=== PATIENT | male | born 1930 | race Caucasian/White ===

== ENCOUNTER 2017-08-07 13:18 | Inpatient (IN) ==
--- NOTE | 2017-08-07 17:12 | Event Note ---
Date of Encounter: 08/07/17 Time of Encounter: 17:08 Patient seen and examined with nurse practitioner. Patient has community acquired pneumonia, new onset rate controlled afib, positive influenza A, in addition to non-STEMI (type 1 vs. 2). Start patient on antibiotics, Tamiflu, aspirin, low-dose heparin drip for stroke prophylaxis for afib. Check echocardiogram. Cardiology consult. Patient is full code
[2017-08-07] MEDS ORDERED: Ondansetron 4 MG/2 ML VIAL IVP PRN (17:51)
[2017-08-07] MEDS ORDERED: Naloxone 0.4 MG/ML INJ IVP PRN (17:51)
[2017-08-07] MEDS ORDERED: Albuterol 2.5 MG/3 ML NEBULIZER IH PRN (17:53)
[2017-08-07] MEDS ORDERED: *HR* Heparin 5,000 UNIT/ML VIAL IVP PRN (17:54)
[2017-08-07] MEDS ORDERED: Furosemide 20 MG/2 ML VIAL IVP SCH (18:15)
--- NOTE | 2017-08-07 18:30 | Internal Med History&Physical ---
Date of Encounter: 08/07/17 Time of Encounter: 18:23 Assessment and Plan (1) New onset a-fib Current visit: No Status: Acute Patient presented A. fib controlled rate of 70 history of atrial fibrillation denies any chest pain initiated on heparin drip Continuous cardiac monitoring Obtain cardiac echo Consult cardiology -spoke Dr. Ward who will see patient (2) Influenza Current visit: No Status: Acute Influenza swab positive-influenza A- symptoms initiated 2 days ago we will start her on Tamiflu (3) Pneumonia Current visit: No Status: Acute Patient has been experiencing cough fever shortness of breath chest x-ray did show bilateral opacities more prominent on the right Blood cultures were obtained and obtain sputum culture Initiated on Levaquin for community acquired pneumonia Bronchodilators Qualifiers: Pneumonia type: due to unspecified organism Laterality: right Lung location: lower lobe of lung Qualified Code(s): J18.1 - Lobar pneumonia, unspecified organism (4) NSTEMI (non-ST elevated myocardial infarction) Current visit: Yes Status: Acute Patient has elevated troponin on presentation 0.30-1 versus 2-patient has cardiac history with stent and LAD 10 years ago as well as presently in new A. fib. We will continue to trend troponins-he is already on heparin drip which we will continue Continuous cardiac monitoring Cardiology consulted Nitroglycerin as needed Continue with aspirin and statin (5) DVT prophylaxis Current visit: Yes Status: Acute Patient is on heparin drip Internal Medicine - H&P: HPI Chief complaint: Cough,SOB Admitted From: Hospital to Hospital Transfer Plans for Post Hospital Care: Home History of present illness: Mr. Bermudez is a 86 year old male past medical history of CAD with stent and LAD CKD GERD hyperlipidemia hypertension hypothyroid. For the past 2 days patient has been experiencing cough with yellow sputum production congestion subjective fevers/chills and shortness of breath. He has had sick contacts with similar complaints he denies any chest pain nausea vomiting diarrhea or abdominal pain. He presented to [facility] , lab work there did show elevated creatinine troponin was elevated as well as BNP and chest x-ray did show by basilar opacity of these more prominent on the right. Influenza swab was positive for influenza A EKG did demonstrate atrial fibrillation with a controlled rate in the 70s patient denies any past history of atrial fibrillation. He was initiated on heparin drip Blood cultures were obtained he was given Levaquin and Tamiflu he has been transferred to [facility] for further workup and evaluation. Presently the patient denies any chest pain or shortness of breath he is hemodynamically stable at this time continues to be atrial fibrillation with a controlled rate 70s. I did review this case with Dr. Law who agrees with plan. Past Med Surg Social Fam HX - Past Medical History Medical history: coronary artery disease, GERD, hyperlipidemia, hypertension, thyroid disease Psychiatric history: no psych history - Past Surgical History Surgical History: angioplasty/stent - Social History Smoking Status: Former smoker Alcohol use: none Drug use: none - Family History Sister Hx Family Cancer: Yes Father Living Status: Cause of : CVA Hx Family Neurologic Disorders: Yes (CVA) Brother Living Status: Hx Family Cancer: Yes Internal Medicine - H&P: Meds Aspirin [Ecotrin] 325 mg PO DAILY 08/07/17 [History] Atorvastatin [Lipitor] 20 mg PO HS 08/07/17 [History] Calcitriol [Rocaltrol] 0.25 mcg PO DAILY 08/07/17 [History] Ergocalciferol (VITAMIN D2) [Vitamin D2] 50,000 unit PO QWEEK 08/07/17 [History] Fexofenadine/Pseudoephedrine [Ericka-D 24 Hour Tablet] 1 each PO DAILY [History] Finasteride [Proscar] 5 mg PO DAILY 08/07/17 [History] Furosemide [Lasix] 40 mg PO DAILY PRN 08/07/17 [History] Iron Ps Cmplx/Vit B12/FA [Iferex 150 Forte Capsule] 1 cap PO DAILY 08/07/17 [ History] Levothyroxine Sodium [Synthroid] 137 mcg PO DAILY 08/07/17 [History] Lipase/Protease/Amylase [Creon Dr 12,000 Units Capsule] 1 cap PO TIDWM 08/07/17 [History] Lisinopril [Zestril] 40 mg PO DAILY 08/07/17 [History] NIFEdipine [Nifedipine ER] 30 mg PO DAILY 08/07/17 [History] Omeprazole [PriLOSEC] 40 mg PO DAILY 08/07/17 [History] 3 Allergy/AdvReac Type Severity Reaction Status Date / Time No Known Allergies Allergy Verified 08/07/17 11:14 All Systems PM: A 10-system review of systems was performed and is negative for pertinent findings except as documented above in the HPI. - Constitutional Constitutional: no chills, no fever(s), no night sweats - EENT Eyes: no change in vision, no discharge, no pain, no photophobia Nose, mouth and throat: no dysphagia, no nasal discharge, no neck pain, no sore throat - Cardiovascular Cardiovascular ROS IM: no chest pain, no diaphoresis, no dyspnea, no lightheadedness, no palpitations, no syncope - Respiratory Respiratory: cough, chest congestion, change in phlegm color - Gastrointestinal Gastrointestinal: no abdominal pain, no diarrhea, no hematemesis, no hematochezia, no melena, no nausea, no vomiting - Musculoskeletal Musculoskeletal ROS IM: no numbness, no tingling - Integumentary Integumentary IM: no rash, no unusual bruising - Neurological Neurological ROS: no confusion, no convulsions, no focal weakness, no numbness, no tingling, no tremor(s) - Hematologic/Lymphatic Hematologic/Lymphatic: no easy bruising - Constitutional Vitals: Temp Pulse Resp BP Pulse Ox 99.3 F 76 17 147/79 92 08/07/17 15:41 08/07/17 15:41 08/07/17 15:41 08/07/17 15:41 08/07/17 15:41 General appearance: Present: A&O X 3, answers questions appropriately - Head Head exam: Present: atraumatic, normocephalic - Eye Eye exam: Present: PERRL, conjuntiva pink, sclera anicteric Pupils: Present: PERRL - Neck Neck exam general surgery: Present: supple, trachea midline. Absent: lymphadenopathy - Respiratory Respiratory exam: Present: rales. Absent: accessory muscle use, rhonchi, wheezes - Cardiovascular Cardiovascular exam: Present: irregular rhythm, +S1, +S2. Absent: diastolic murmur, gallop, rubs, systolic murmur - GI/Abdominal GI/Abdominal exam: Present: normal bowel sounds, soft, no peritoneal signs. Absent: distended, tenderness - Extremities Exam Extremities exam: Present: pedal edema, warm, radial pulses palpable and symmetrical. Absent: calf tenderness, cyanotic - Neurological Exam Neurological exam: Present: CN II-XII intact, oriented X3, no focal deficits. Absent: pronater drift, facial droop, speech deficit - Skin Skin exam: Present: dry, intact Internal Med - H&P Results - Labs Labs: Chemistry sodium 139 potassium 4.2 chloride 108 bicarbonate 22 and 32 creatinine 1.85 glucose 119 lactate 1.3 troponin 0.30 BMP 859 CBC WBC 10 hemoglobin 10.6 hematocrit 32.5 platelets 169 - EKG Data EKG comments: 08/07/17 18:33 Atrial fibrillation rate of 77 - Diagnostic Studies Other Images Additional comments: CXR Bilateral airspace opacities, most prominent at the right lung base, concerning for pneumonia.
[2017-08-07] MEDS: Furosemide 20 MG/2 ML VIAL IVP SCH (19:53)
[2017-08-07] MEDS: Acetaminophen 325 MG TABLET PO PRN (19:53)
[2017-08-07] MEDS: Heparin 25,000 UNIT/500 ML D5W 25,000 UNIT/500 ML BAG IVC SCH (21:30)
[2017-08-07] MEDS: *HR* Heparin 5,000 UNIT/ML VIAL IVP PRN (21:36)
[2017-08-07] MEDS: Oseltamivir Phosphate 30 MG CAPSULE PO SCH (23:41)
[2017-08-07] MEDS: Ipratropium/Albuterol Neb 3 ML IH SCH (23:51)
[2017-08-08] MEDS: Ipratropium/Albuterol Neb 3 ML IH SCH ×4 (04:31→22:04)
[2017-08-08 04:55] LABS: Basophils % 0.3 %; Hematocrit 27.7 % (37.5-50.1); Hemoglobin 8.9 g/dL (12.9-16.9); Immature Granulocytes % 0.9 % (0-4); Lymphocytes # 0.5 K/mcL (0.6-4.6); Lymphocytes % 5.8 %; Mean Corpuscular HGB Conc 32.1 g/dL (31.6-35.5); Mean Corpuscular Hemoglobin 31.9 pg (28.0-33.3); Mean Corpuscular Volume 99.3 fL (83.0-100.0); Mean Platelet Volume 11.4 fL (9.4-12.4); Monocytes # 0.5 K/mcL (0.0-1.3); Monocytes % 5.3 %; Neutrophils # 7.8 K/mcL (1.6-8.9); Platelet Count 146 K/mcL (140-400); Red Blood Count 2.79 M/mcL (4.19-5.50); Red Cell Distribution Width 14.1 % (11.5-14.5); Segmented Neutrophils % 87.7 %
[2017-08-08 05:19] LABS: Chol/HDL Ratio 2.6 (0-4.9); Magnesium 2.1 mg/dL (1.6-2.6); Potassium 3.8 mEq/L (3.5-5.1)
[2017-08-08] MEDS: Oseltamivir Phosphate 30 MG CAPSULE PO SCH ×2 (08:19→20:38)
[2017-08-08] MEDS: Furosemide 20 MG/2 ML VIAL IVP SCH (08:19)
[2017-08-08] MEDS: Finasteride 5 MG TABLET PO SCH (08:19)
[2017-08-08] MEDS: Aspirin Enteric Coated 325 MG Tablet PO SCH (08:19)
[2017-08-08] MEDS: NIFEdipine XL (24 HR) 30 MG TAB.ER.24 PO SCH (08:19)
--- NOTE | 2017-08-08 10:51 | Cardiology Consult Note ---
Date of Encounter: 08/08/17 Time of Encounter: 09:00 Assessment and Plan (1) Elevated troponin Current Visit: Yes Status: Acute Troponin elevated at 0.30, 0.13, 0.17 in the setting of BRITTNEY, anemia, and pneumonia. He denies chest pain. H/o CAD s/p previous PCI. EKG shows rate controlled afib. Check TTE. Continue heparin gtt for elevated troponin and afib. Asa, statin, and bb. (2) Atrial fibrillation Current Visit: Yes Status: Acute Noted to have rate controlled afib. Denies previous history. He is asymptomatic. Unknown onset. Continue beta-da. Check TTE and TSH. Continue heparin gtt. CHADS VASC=3 for HTN, age, and CAD. AC with coumadin vs NOAC discussed. He is a little unsteady on his feet since being ill with the flu. May need physical therapy. I will estrada check xarelto 15 mg daily. Creatinine clearance is 44.39. Qualifiers: Atrial fibrillation type: unspecified Qualified Code(s): I48.91 - Unspecified atrial fibrillation (3) CAD (coronary artery disease) Current Visit: Yes Status: Acute H/o remote PCI. No records here. Continue asa, statin, and bb. Qualifiers: Coronary Disease-Associated Artery/Lesion type: [place] artery [place] vs. transplanted heart: [place] heart Associated angina: without angina Qualified Code(s): I25.10 - Atherosclerotic heart disease of [place] coronary artery without angina pectoris Discussion w patient/family: The assessment and plan as outlined above was discussed with the patient and/or family members who expressed understanding and agreement. All questions were answered. Thank you for involving us in the care of your patient. Please call with any questions. History of Present Illness Consult date: 08/08/17 Requesting physician: Jeana Trevino Consult reason: afib Chief complaint: SOB and cough History of present illness: Mr. Bermudez is a 86 year old male with a past medical history of HTN CAD with revious cardiac stent who presents from home with two weeks of SOB, cough, and generalized weakness. He is found to have pneumonia. He was also noted to have rate controlled afib and troponin elevation. Cardiology consulted due to patient having no previous history of afib. He denies palpitations or chest pain. Past Med Surg Social Fam HX - Past Medical History Medical history: coronary artery disease, GERD, hyperlipidemia, hypertension, thyroid disease Psychiatric history: no psych history - Past Surgical History Surgical History: angioplasty/stent - Social History Smoking Status: Former smoker Alcohol use: none Drug use: none - Family History Sister Hx Family Cancer: Yes Father Living Status: Cause of : CVA Hx Family Neurologic Disorders: Yes (CVA) Brother Living Status: Hx Family Cancer: Yes Medications and Allergies Aspirin [Ecotrin] 325 mg PO DAILY 08/07/17 [History] Atorvastatin [Lipitor] 20 mg PO HS 08/07/17 [History] Calcitriol [Rocaltrol] 0.25 mcg PO DAILY 08/07/17 [History] Ergocalciferol (VITAMIN D2) [Vitamin D2] 50,000 unit PO QWEEK 08/07/17 [History] Fexofenadine/Pseudoephedrine [Ericka-D 24 Hour Tablet] 1 each PO DAILY [History] Finasteride [Proscar] 5 mg PO DAILY 08/07/17 [History] Furosemide [Lasix] 40 mg PO DAILY PRN 08/07/17 [History] Iron Ps Cmplx/Vit B12/FA [Iferex 150 Forte Capsule] 1 cap PO DAILY 08/07/17 [ History] Levothyroxine Sodium [Synthroid] 137 mcg PO DAILY 08/07/17 [History] Lipase/Protease/Amylase [Creon Dr 12,000 Units Capsule] 1 cap PO TIDWM 08/07/17 [History] Lisinopril [Zestril] 40 mg PO DAILY 08/07/17 [History] NIFEdipine [Nifedipine ER] 30 mg PO DAILY 08/07/17 [History] Omeprazole [PriLOSEC] 40 mg PO DAILY 08/07/17 [History] 3 Allergy/AdvReac Type Severity Reaction Status Date / Time No Known Allergies Allergy Verified 08/07/17 11:14 All Systems Review: A 10-system review of systems was performed and is negative for pertinent findings except as documented above in the HPI. Physical Examination Vital Signs, Last 4 Hours Temp Pulse Resp BP Pulse Ox 08/08/17 07:14 98.5 F 75 18 130/67 95 General: Conversant, No Apparent Distress HEENT: Atraumatic, Normocephaly, Mucus Membranes Moist Neck: No JVD, Normal carotid pulses Cardiac: Other (irregular) Lungs: Other (respirations easy, rhonci throughout) Neuro: Alert and responsive, No focal deficits noted Abdomen: Soft, Non-Tender Skin: No rashes noted on visualized skin Musculoskeletal: No Chest Wall Tenderness Extremities: No Clubbing, No Cyanosis, No Edema, Normal Pulses Results 08/08/17 04:17 08/08/17 04:17 Lab Results 08/07/17 08/07/17 08/08/17 18:15 20:39 04:17 WBC 8.9 Hgb 8.9 L D Hct 27.7 L Plt Count 146 APTT 43.2 H D Sodium Potassium Chloride Carbon Dioxide BUN Creatinine Glucose Calcium Magnesium Troponin I 0.13 H* 08/08/17 08/08/17 08/08/17 04:17 04:17 04:17 WBC Hgb Hct Plt Count APTT 81.9 H D Sodium 137 Potassium 3.8 Chloride 109 H Carbon Dioxide 22 L BUN 30 H Creatinine 1.58 H Glucose 166 H Calcium 8.0 L Magnesium 2.1 Troponin I 0.17 H* - Imaging and Cardiology Chest Xray: report reviewed Echo: pending - EKG Interpretation EKG results cardiology: personally reviewed Consult Discharge Plan - Plan Referrals: Inés Viveros MD [Primary Care Provider] -
--- NOTE | 2017-08-08 10:58 | Internal Med Progress Note ---
Date of Encounter: 08/08/17 Time of Encounter: 09:40 - Subjective Interval history: No acute events. The patient was admitted with the flu, pneumonia and new onset A. fib. He has been afebrile. His currently in sinus rhythm. He was started on heparin drip. He feels better this morning. Denies chest pain. - Constitutional Vitals: Temp Pulse Resp BP Pulse Ox 98.5 F 75 18 130/67 95 08/08/17 07:14 08/08/17 07:14 08/08/17 07:14 08/08/17 07:14 08/08/17 07:14 General appearance: Present: A&O X 3, answers questions appropriately Exam: GEN: NAD CVS: RRR. S1, S2, No m/r/g RESP: CTAB ABD: Soft, NT, ND, +BS EXT: No edema. 2+ DP, No rashes NEURO: Nonfocal Internal Medicine: Result - Labs CBC & Chem 7: 08/08/17 04:17 08/08/17 04:17 Labs: Short CBC 08/08/17 Range/Units 04:17 WBC 8.9 (4.3-11.1) K/mcL Hgb 8.9 L D (12.9-16.9) g/dL Hct 27.7 L (37.5-50.1) % Plt Count 146 (140-400) K/mcL Neutrophils # 7.8 (1.6-8.9) K/mcL BMP 08/08/17 04:17 Sodium 137 Potassium 3.8 Chloride 109 H Carbon Dioxide 22 L BUN 30 H Creatinine 1.58 H Glucose 166 H Calcium 8.0 L Cardiac Enzymes 08/07/17 08/08/17 Range/Units 18:15 04:17 Troponin I 0.13 H* 0.17 H* (< 0.04) ng/mL Consult Discharge Plan - Plan Referrals: Inés Viveros MD [Primary Care Provider] -
[2017-08-08] MEDS: Acetaminophen 325 MG TABLET PO PRN (11:08)
--- NOTE | 2017-08-08 11:16 | Internal Med Progress Note ---
Date of Encounter: 08/08/17 Time of Encounter: 09:00 - Assessment and plan (1) Influenza Current Visit: Yes Status: Acute Assessment and plan: The patient is positive for influenza A. Tamiflu has been started. This is day 2. (2) Pneumonia Current Visit: Yes Status: Acute Assessment and plan: Chest x-ray showed bilateral opacities more prominent on the right. Follow up on cultures. Continue Levaquin. Continue with O2 support. Continue with nebulizer treatment. Qualifiers: Aspiration pneumonia type: unspecified Laterality: unspecified laterality Lung location: unspecified part of lung Qualified Code(s): J69.0 - Pneumonitis due to inhalation of food and vomit (3) BRITTNEY (acute kidney injury) Current Visit: Yes Status: Acute Assessment and plan: The patient does have a history of chronic kidney disease. Unsure what his baseline is. His creatinine did improve compared to admission. No IV fluids. Check labs in the morning. Avoid nephrotoxins. (4) Elevated troponin Current Visit: Yes Status: Acute Assessment and plan: Cardiology has been consulted. Possibly an STEMI type I versus 2. He does have a new onset A. fib and brittney. We will await cardiology. Continue with heparin drip. The patient is on a beta da as well. He is on aspirin 325 mg daily. (5) NSTEMI (non-ST elevated myocardial infarction) Current Visit: Yes Status: Acute Assessment and plan: Hypertension has been started. Beta da as well as aspirin 325 mg has been added. Echo pending (6) Atrial fibrillation Current Visit: Yes Status: Acute Assessment and plan: This is new-onset. Cardiology has been consulted. Echo pending. Continue with rate control with metoprolol 25 mg twice a day. Has elevated chads vasc score and likely will need anticoagulation. Qualifiers: Atrial fibrillation type: unspecified Qualified Code(s): I48.91 - Unspecified atrial fibrillation (7) CAD (coronary artery disease) Current Visit: Yes Status: Acute Assessment and plan: Continue aspirin and beta da. Continue statin. Qualifiers: Coronary Disease-Associated Artery/Lesion type: [place] artery [place] vs. transplanted heart: [place] heart Associated angina: without angina Qualified Code(s): I25.10 - Atherosclerotic heart disease of [place] coronary artery without angina pectoris (8) DVT prophylaxis Current Visit: Yes Status: Acute Assessment and plan: Heparin drip - Subjective Interval history: No acute events. The patient was admitted with the flu, pneumonia and new onset A. fib. He has been afebrile. His currently in sinus rhythm. He was started on heparin drip. He feels better this morning. Denies chest pain. - Constitutional Vitals: Temp Pulse Resp BP Pulse Ox 100.1 F H 86 16 109/62 92 08/08/17 11:05 08/08/17 11:05 08/08/17 11:05 08/08/17 11:05 08/08/17 11:05 General appearance: Present: A&O X 3, answers questions appropriately Internal Medicine: Result - Labs CBC & Chem 7: 08/08/17 04:17 08/08/17 04:17 Labs: Short CBC 08/08/17 Range/Units 04:17 WBC 8.9 (4.3-11.1) K/mcL Hgb 8.9 L D (12.9-16.9) g/dL Hct 27.7 L (37.5-50.1) % Plt Count 146 (140-400) K/mcL Neutrophils # 7.8 (1.6-8.9) K/mcL BMP 08/08/17 04:17 Sodium 137 Potassium 3.8 Chloride 109 H Carbon Dioxide 22 L BUN 30 H Creatinine 1.58 H Glucose 166 H Calcium 8.0 L Cardiac Enzymes 08/07/17 08/08/17 Range/Units 18:15 04:17 Troponin I 0.13 H* 0.17 H* (< 0.04) ng/mL Consult Discharge Plan - Plan Referrals: Inés Viveros MD [Primary Care Provider] - Prescriptions: Rivaroxaban [Xarelto] 15 mg PO 1700 #30 tablet
[2017-08-08] MEDS: *HR* Heparin 5,000 UNIT/ML VIAL IVP PRN (11:54)
[2017-08-08 11:59] LABS: Magnesium 1.9 mg/dL (1.6-2.6)
[2017-08-08 12:14] LABS: Thyroid Stimulating Hormone 0.548 mcIU/mL (0.340-5.600)
[2017-08-08] MEDS: Heparin 25,000 UNIT/500 ML D5W 25,000 UNIT/500 ML BAG IVC SCH (15:16)
[2017-08-09 00:43] LABS: Basophils % 0.3 %; Eosinophils # 0.3 K/mcL (0.0-0.6); Hematocrit 26.7 % (37.5-50.1); Hemoglobin 8.9 g/dL (12.9-16.9); Immature Granulocytes % 0.9 % (0-4); Lymphocytes # 1.1 K/mcL (0.6-4.6); Lymphocytes % 12.2 %; Mean Corpuscular HGB Conc 33.3 g/dL (31.6-35.5); Mean Corpuscular Hemoglobin 32.6 pg (28.0-33.3); Mean Corpuscular Volume 97.8 fL (83.0-100.0); Mean Platelet Volume 10.7 fL (9.4-12.4); Monocytes # 0.8 K/mcL (0.0-1.3); Monocytes % 8.6 %; Neutrophils # 6.6 K/mcL (1.6-8.9); Platelet Count 156 K/mcL (140-400); Red Blood Count 2.73 M/mcL (4.19-5.50); Red Cell Distribution Width 14.2 % (11.5-14.5)
[2017-08-09 00:58] LABS: Calcium 8.3 mg/dL (8.6-10.3); Potassium 3.5 mEq/L (3.5-5.1)
[2017-08-09] MEDS: Ipratropium/Albuterol Neb 3 ML IH SCH ×4 (04:03→23:45)
[2017-08-09] MEDS: *HR* Heparin 5,000 UNIT/ML VIAL IVP PRN (07:15)
[2017-08-09] MEDS ORDERED: Levofloxacin 750 MG/150 ML 750 MG/150 ML BAG IVPB SCH (09:00)
[2017-08-09] MEDS: Finasteride 5 MG TABLET PO SCH (11:08)
[2017-08-09] MEDS: *HR* Rivaroxaban 15 MG TABLET PO SCH ×2 (11:08→18:08)
[2017-08-09] MEDS: NIFEdipine XL (24 HR) 30 MG TAB.ER.24 PO SCH (11:08)
[2017-08-09] MEDS: Oseltamivir Phosphate 30 MG CAPSULE PO SCH ×2 (11:09→21:12)
[2017-08-09] MEDS: Aspirin Enteric Coated 325 MG Tablet PO SCH (11:09)
--- NOTE | 2017-08-09 13:02 | Internal Med Progress Note ---
Date of Encounter: 08/09/17 Time of Encounter: 11:00 - Assessment and plan (1) Influenza Current Visit: Yes Status: Acute Assessment and plan: The patient is positive for influenza A. Tamiflu has been started. This is day 3. (2) Pneumonia Current Visit: Yes Status: Acute Assessment and plan: Chest x-ray showed bilateral opacities more prominent on the right. Sputum cultures negative. Continue Levaquin. Continue with O2 support. Continue with nebulizer treatment. Wean down oxygen as tolerated. Qualifiers: Aspiration pneumonia type: unspecified Laterality: unspecified laterality Lung location: unspecified part of lung Qualified Code(s): J69.0 - Pneumonitis due to inhalation of food and vomit (3) BRITTNEY (acute kidney injury) Current Visit: Yes Status: Acute Assessment and plan: The patient does have a history of chronic kidney disease. Unsure what his baseline is. No IV fluids. Check labs in the morning. Avoid nephrotoxins. (4) Elevated troponin Current Visit: Yes Status: Acute Assessment and plan: Cardiology has been consulted. Possibly NSTEMI type I versus 2. He did have a new onset A. fib and brittney. Cardiology saw the patient and echo ordered showed no wall motion and mobility. Stop heparin drip. Place on xarelto renally dosed. Stop adult aspirin and start baby aspirin. The patient is on a beta da as well. (5) NSTEMI (non-ST elevated myocardial infarction) Current Visit: Yes Status: Acute Assessment and plan: Stop heparin drip. Echo noted normal wall motion. Continue beta da. Start aspirin 81 mg and stopped 325 mg aspirin. Continue statin (6) Atrial fibrillation Current Visit: Yes Status: Acute Assessment and plan: This is new-onset. Cardiology has been consulted. Stop heparin drip switched to xarelto renally dosed. Echo results noted. Continue with rate control with metoprolol 25 mg twice a day. Qualifiers: Atrial fibrillation type: unspecified Qualified Code(s): I48.91 - Unspecified atrial fibrillation (7) CAD (coronary artery disease) Current Visit: Yes Status: Acute Assessment and plan: Continue aspirin and beta da. Continue statin. Qualifiers: Coronary Disease-Associated Artery/Lesion type: [place] artery [place] vs. transplanted heart: [place] heart Associated angina: without angina Qualified Code(s): I25.10 - Atherosclerotic heart disease of [place] coronary artery without angina pectoris (8) DVT prophylaxis Current Visit: Yes Status: Acute Assessment and plan: xarelto - Subjective Interval history: No acute events. The patient was admitted with the flu, pneumonia and new onset A. fib. Continues to be afebrile. Remains in sinus rhythm. He has been afebrile. His currently in sinus rhythm. He was started on heparin drip and remains to do so. He continues to feel well. He remains on 3 L of nasal cannula oxygen. - Constitutional Vitals: Temp Pulse Resp BP Pulse Ox 98.8 F 75 16 108/63 94 08/09/17 11:29 08/09/17 11:29 08/09/17 11:29 08/09/17 11:29 08/09/17 11:29 General appearance: Present: A&O X 3, answers questions appropriately Exam: GEN: NAD CVS: RRR. S1, S2, No m/r/g RESP: CTAB ABD: Soft, NT, ND, +BS EXT: No edema. 2+ DP, No rashes NEURO: Nonfocal Internal Medicine: Result - Labs CBC & Chem 7: 08/09/17 00:34 08/09/17 00:34 Labs: Short CBC 08/09/17 Range/Units 00:34 WBC 8.8 (4.3-11.1) K/mcL Hgb 8.9 L (12.9-16.9) g/dL Hct 26.7 L (37.5-50.1) % Plt Count 156 (140-400) K/mcL Neutrophils # 6.6 (1.6-8.9) K/mcL BMP 08/09/17 00:34 Sodium 136 Potassium 3.5 Chloride 107 Carbon Dioxide 23 BUN 32 H Creatinine 1.81 H Glucose 132 H Calcium 8.3 L Consult Discharge Plan - Plan Referrals: Inés Viveros MD [Primary Care Provider] - Prescriptions: Rivaroxaban [Xarelto] 15 mg PO 1700 #30 tablet
[2017-08-10] MEDS: Ipratropium/Albuterol Neb 3 ML IH SCH ×2 (03:48→11:51)
[2017-08-10 04:47] LABS: Eosinophils # 0.3 K/mcL (0.0-0.6); Hematocrit 27.3 % (37.5-50.1); Hemoglobin 8.7 g/dL (12.9-16.9); Mean Corpuscular HGB Conc 31.9 g/dL (31.6-35.5); Mean Corpuscular Hemoglobin 31.8 pg (28.0-33.3); Mean Corpuscular Volume 99.6 fL (83.0-100.0); Platelet Count 187 K/mcL (140-400); Red Blood Count 2.74 M/mcL (4.19-5.50); Red Cell Distribution Width 14.3 % (11.5-14.5)
[2017-08-10 05:04] LABS: Calcium 8.1 mg/dL (8.6-10.3); Potassium 3.5 mEq/L (3.5-5.1)
[2017-08-10 05:36] LABS: Lymphocytes # 2.3 K/mcL (0.6-4.6); Monocytes # 0.7 K/mcL (0.0-1.3); Platelet Estimate Normal (Normal)
[2017-08-10] MEDS: NIFEdipine XL (24 HR) 30 MG TAB.ER.24 PO SCH (08:56)
[2017-08-10] MEDS: Finasteride 5 MG TABLET PO SCH (08:56)
[2017-08-10] MEDS: Oseltamivir Phosphate 30 MG CAPSULE PO SCH (08:56)
[2017-08-10] MEDS ORDERED: Aspirin Enteric Coated 81 MG Tablet PO SCH (09:00)
--- NOTE | 2017-08-10 09:42 | Discharge Summary ---
Date of Encounter: 08/10/17 Time of Encounter: 09:37 - Discharge Diagnosis (1) Influenza Priority: Primary Status: Acute (2) Pneumonia Priority: Primary Status: Acute Qualifiers: Aspiration pneumonia type: unspecified Laterality: unspecified laterality Lung location: unspecified part of lung Qualified Code(s): J69.0 - Pneumonitis due to inhalation of food and vomit (3) BRITTNEY (acute kidney injury) Priority: Primary Status: Acute (4) Elevated troponin Priority: Primary Status: Acute (5) NSTEMI (non-ST elevated myocardial infarction) Priority: Primary Status: Acute (6) Atrial fibrillation Priority: Primary Status: Acute Qualifiers: Atrial fibrillation type: unspecified Qualified Code(s): I48.91 - Unspecified atrial fibrillation (7) CAD (coronary artery disease) Priority: Secondary Status: Acute Qualifiers: Coronary Disease-Associated Artery/Lesion type: pokagon artery [place] vs. transplanted heart: pokagon heart Associated angina: without angina Qualified Code(s): I25.10 - Atherosclerotic heart disease of pokagon coronary artery without angina pectoris (8) CKD (chronic kidney disease) stage 3, GFR 30-59 ml/min Priority: Secondary Status: Acute - Discharge Medications Prescriptions: Aspirin Enteric Coated [Aspirin EC] 81 mg PO DAILY #30 tablet. Levofloxacin [Levaquin] 500 mg PO DAILY #5 tablet Oseltamivir Phosphate [Tamiflu] 30 mg PO BID #2 capsule Rivaroxaban [Xarelto] 15 mg PO 1700 #30 tablet Rivaroxaban [Xarelto] 15 mg PO 1700 #30 tablet Home Medications: Atorvastatin [Lipitor] 20 mg PO HS 08/07/17 [History] Calcitriol [Rocaltrol] 0.25 mcg PO DAILY 08/07/17 [History] Ergocalciferol (VITAMIN D2) [Vitamin D2] 50,000 unit PO QWEEK 08/07/17 [History] Fexofenadine/Pseudoephedrine [Ericka-D 24 Hour Tablet] 1 each PO DAILY [History] Finasteride [Proscar] 5 mg PO DAILY 08/07/17 [History] Furosemide [Lasix] 40 mg PO DAILY PRN 08/07/17 [History] Iron Ps Cmplx/Vit B12/FA [Iferex 150 Forte Capsule] 1 cap PO DAILY 08/07/17 [ History] Levothyroxine Sodium [Synthroid] 137 mcg PO DAILY 08/07/17 [History] Lipase/Protease/Amylase [Yamileth Benton 12,000 Units Capsule] 1 cap PO TIDWM 08/07/17 [History] Lisinopril [Zestril] 40 mg PO DAILY 08/07/17 [History] NIFEdipine [Nifedipine ER] 30 mg PO DAILY 08/07/17 [History] Omeprazole [PriLOSEC] 40 mg PO DAILY 08/07/17 [History] Rivaroxaban [Xarelto] 15 mg PO 1700 #30 tablet 08/08/17 [Rx] Aspirin Enteric Coated [Aspirin EC] 81 mg PO DAILY #30 tablet. 08/10/17 [Rx] Levofloxacin [Levaquin] 500 mg PO DAILY #5 tablet 08/10/17 [Rx] Oseltamivir Phosphate [Tamiflu] 30 mg PO BID #2 capsule 08/10/17 [Rx] Rivaroxaban [Xarelto] 15 mg PO 1700 #30 tablet 08/10/17 [Rx] Allergies/Adverse Reactions: 3 Allergy/AdvReac Type Severity Reaction Status Date / Time No Known Allergies Allergy Verified 08/07/17 11:14 Procedures/tests Complete & Pending: Procedures Performed prior 72 hours Category Date Time Status EV echocardiogram Routine Y 08/08/17 07:00 Completed Date of admission: 08/07/17 17:51 Primary care physician: Inés Viveros, Consults: 08/07/17 17:58 Consult to Cardiology [CONS] Routine Comment: Consulting Provider: Cardiology Consuelo Reason for Consult: new onset afib Time Notified: 17:58 Call Completed: Yes - Patient Status Disposition: Home, Self-Care Condition: Fair Overall status at discharge: patient is back to baseline - Discharge Instructions Follow Up With: Javi Ward MD [Partnered Physician] - (2 weeks) Steffanie Lugo CNP [Advanced Practice Nurse] - 08/17/17 3:00 pm Additional Instructions: Follow-up appointments: If there is not an appointment listed below, please call your physician and schedule a follow-up appointment. If you have congestive heart failure and your symptoms return, make an appointment with your physician. Medication List: Carry an up to date list of medications you are taking at all time. We have given you an updated medication list including any new medications that you have been prescribed. Please provide that list to your primary provider Symptoms: If your condition changes or you experience any of the following symptoms, notify your physician immediately: Unusual or worsening pain, fever, persistent nausea and vomiting, bleeding, increase in swelling (especially in your legs), sudden weight gain, extreme dizziness, chest pain, increased drainage or redness from a wound or incision. Go to the emergency department if you experience a problem with breathing. Weights: If you have a history of swelling or shortness of breath, weigh yourself daily and notify your physician if you have a weight gain of two or more pounds in one day or 5 or more pounds in a week. If you experience any of the warning signs for stroke: Sudden numbness or weakness of the face, arm or leg; especially on one side of the body, sudden confusion, trouble speaking or understanding, sudden trouble seeing in one or both eyes, sudden trouble walking, dizziness, loss of balance or coordination, sudden sever headache with no cause; Call 911 or go to the emergency room. Stroke is a medical emergency. Some risk factors for stroke: Age, cigarette smoking, diabetes, excessive alcohol consumption, family history , high blood pressure, overweight, physical inactivity, prior stroke, heart attack, diagnosis of carotid artery stenosis or other artery disease. If you smoke, STOP: Smoking or tobacco use significantly increases your risk of heart and lung disease. Your chance of disease greatly increases if you continue to smoke. For more information, call the [place] tobacco quit line for smoking cessation QUIT-NOW ( ) - Diet and Activity Activity: increase activity as tolerated Diet: low salt diet Hospital course: Mr. Bermudez is a 86 year old male past medical history of CAD with stent and LAD CKD GERD hyperlipidemia hypertension hypothyroid who presented with 2 days of cough with yellow sputum production congestion subjective fevers/chills and shortness of breath. He presented to [facility] ER , lab work there did show elevated creatinine troponin was elevated as well as BNP and chest x-ray did show by basilar opacity of these more prominent on the right. Influenza swab was positive for influenza. EKG did demonstrate atrial fibrillation with a controlled rate in the 70s patient denies any past history of atrial fibrillation. He was initiated on heparin drip. He was admitted to the hospital service and started on Levaquin and Tamiflu. Was seen by cardiology for elevated troponins and new atrial fibrillation. Rest of the cultures remain negative. Cardiology ordered an echocardiogram which came back with no wall motion abnormalities and no significant valvular disease. He ended up being started on anticoagulation with xarelto. 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 - Time Spent with Patient Total time spent providing and/or coordinating discharge services: Greater than 30 minutes - Constitutional Vitals: Temp Pulse Resp BP Pulse Ox 98.7 F 75 20 113/61 95 08/10/17 07:26 08/10/17 07:26 08/10/17 07:26 08/10/17 07:26 08/10/17 07:26 General appearance: Present: A&O X 3, answers questions appropriately Exam: GEN: NAD CVS: RRR. S1, S2, No m/r/g RESP: CTAB ABD: Soft, NT, ND, +BS EXT: No edema. 2+ DP, No rashes NEURO: Nonfocal
[2017-08-10 11:17] VITALS: BP 101/62
== END 2017-08-10 13:00 | disposition home or self-care (01) | DRG 280 ==
LOC: 3BNU
PROVIDERS: ADMIT Hospitalist; ATTEND Registered Nurse

== ENCOUNTER 2020-06-24 06:28 | Inpatient (IN) ==
[2020-06-24] MEDS ORDERED: Naloxone 0.4 MG/ML INJ IVP PRN (10:26)
[2020-06-24] MEDS: cefTRIAXone 1,000 MG in Water for inj. (sterile) 10 ML IVP SCH (11:36)
[2020-06-24 11:49] LABS: Basophils % 0.3 %
[2020-06-24 11:52] LABS: INR 2.1; Prothrombin Time 23.5 Seconds (9.4-12.1)
[2020-06-24 12:04] LABS: Magnesium 1.4 mg/dL (1.6-2.6)
[2020-06-24 12:05] LABS: Potassium 3.1 mEq/L (3.5-5.1)
[2020-06-24 12:08] LABS: Troponin I 0.1 ng/mL (< 0.04)
[2020-06-24 12:45] LABS: Thyroid Stimulating Hormone 60.305 mcIU/mL (0.340-5.600)
[2020-06-24 12:59] LABS: Immature Granulocytes % 0.3 % (0-4); Lymphocytes % 19.5 %
[2020-06-24 13:01] LABS: Eosinophils % 0.6 %; Hematocrit 25.2 % (37.5-50.1); Hemoglobin 8.4 g/dL (12.9-16.9); Immature Platelets 7.8 % (1.1-6.1); Lymphocytes # 1.2 K/mcL (0.6-4.6); Mean Corpuscular HGB Conc 33.3 g/dL (31.6-35.5); Mean Corpuscular Hemoglobin 37.3 pg (28.0-33.3); Mean Platelet Volume 11.6 fL (9.4-12.4); Monocytes # 0.4 K/mcL (0.0-1.3); Monocytes % 6.3 %; Neutrophils # 4.6 K/mcL (1.6-8.9); Platelet Count 134 K/mcL (140-400); Red Blood Count 2.25 M/mcL (4.19-5.50); Red Cell Distribution Width 15.7 % (11.5-14.5); White Blood Count 6.3 K/mcL (4.3-11.1)
[2020-06-24 14:02] LABS: Platelet Estimate Normal (Normal)
[2020-06-24 14:03] LABS: Macrocytosis Present (Not Present)
[2020-06-24] MEDS ORDERED: Levothyroxine Sodium 100 MCG VIAL IVP SCH (16:45)
[2020-06-24] MEDS ORDERED: Lactulose Oral Soln 20 GM/30 ML UDC PO ONE (18:39)
[2020-06-24 18:42] LABS: Basophils % 0.4 %; Eosinophils % 0.5 %; Hematocrit 25.3 % (37.5-50.1); Hemoglobin 8.4 g/dL (12.9-16.9); Immature Granulocytes % 0.5 % (0-4); Lymphocytes # 1.4 K/mcL (0.6-4.6); Lymphocytes % 17.2 %; Mean Corpuscular HGB Conc 33.2 g/dL (31.6-35.5); Mean Corpuscular Hemoglobin 37.8 pg (28.0-33.3); Mean Platelet Volume 11.3 fL (9.4-12.4); Monocytes # 0.5 K/mcL (0.0-1.3); Monocytes % 6.6 %; Platelet Count 151 K/mcL (140-400); Red Blood Count 2.22 M/mcL (4.19-5.50); Red Cell Distribution Width 15.4 % (11.5-14.5); Segmented Neutrophils % 74.8 %
[2020-06-24 19:04] LABS: Macrocytosis Present (Not Present); Platelet Estimate Normal (Normal)
[2020-06-24 19:49] LABS: Procalcitonin 0.16 ng/mL (0.00-0.15)
[2020-06-24 22:33] LABS: Basophils % 0.3 %; Eosinophils # 0.1 K/mcL (0.0-0.6); Eosinophils % 0.9 %; Hemoglobin 8.1 g/dL (12.9-16.9); Immature Granulocytes % 0.4 % (0-4); Lymphocytes # 1.8 K/mcL (0.6-4.6); Lymphocytes % 22.6 %; Mean Corpuscular HGB Conc 33.8 g/dL (31.6-35.5); Mean Corpuscular Hemoglobin 38.2 pg (28.0-33.3); Mean Corpuscular Volume 113.2 fL (83.0-100.0); Mean Platelet Volume 11.4 fL (9.4-12.4); Monocytes # 0.6 K/mcL (0.0-1.3); Monocytes % 7.2 %; Neutrophils # 5.4 K/mcL (1.6-8.9); Platelet Count 139 K/mcL (140-400); Red Blood Count 2.12 M/mcL (4.19-5.50); Red Cell Distribution Width 15.5 % (11.5-14.5); Segmented Neutrophils % 68.6 %; White Blood Count 7.8 K/mcL (4.3-11.1)
[2020-06-24] MEDS: Lactulose Oral Soln 20 GM/30 ML UDC PO SCH (22:33)
[2020-06-24 22:49] LABS: Platelet Estimate Normal (Normal)
[2020-06-24 22:50] LABS: Macrocytosis Present (Not Present); Reactive Lymphocytes Present (Not Present)
[2020-06-25 04:28] LABS: Hemoglobin 7.9 g/dL (12.9-16.9); Immature Granulocytes % 0.5 % (0-4)
[2020-06-25 04:29] LABS: Immature Platelets 5.4 % (1.1-6.1)
[2020-06-25 04:45] LABS: Calcium 7.5 mg/dL (8.6-10.3); Magnesium 1.8 mg/dL (1.6-2.6)
[2020-06-25 04:58] LABS: Basophils % 0.2 %; Eosinophils % 0.5 %; Hematocrit 23.9 % (37.5-50.1); Lymphocytes # 1.2 K/mcL (0.6-4.6); Lymphocytes % 18.6 %; Mean Corpuscular HGB Conc 33.1 g/dL (31.6-35.5); Mean Corpuscular Hemoglobin 37.4 pg (28.0-33.3); Mean Corpuscular Volume 113.3 fL (83.0-100.0); Mean Platelet Volume 11.9 fL (9.4-12.4); Monocytes # 0.5 K/mcL (0.0-1.3); Monocytes % 7.6 %; Neutrophils # 4.8 K/mcL (1.6-8.9); Platelet Count 122 K/mcL (140-400); Red Blood Count 2.11 M/mcL (4.19-5.50); Red Cell Distribution Width 15.4 % (11.5-14.5); Segmented Neutrophils % 72.6 %; White Blood Count 6.6 K/mcL (4.3-11.1)
[2020-06-25 05:58] LABS: Macrocytosis Present (Not Present); Platelet Estimate Normal (Normal)
[2020-06-25] MEDS ORDERED: Levothyroxine Sodium 100 MCG VIAL IVP SCH (07:30)
[2020-06-25] MEDS ORDERED: Perflutren Lipid Microsphere 1.3 ML in 0.9 % Sodium Chloride 8.7 ML IVP PRN (08:56)
[2020-06-25] MEDS: Potassium Chloride Elixir 20 MEQ/15 ML UDC PO SCH ×2 (10:18→13:02)
[2020-06-25] MEDS: cefTRIAXone 1,000 MG in Water for inj. (sterile) 10 ML IVP SCH (10:18)
[2020-06-25] MEDS: Calcium Gluconate 1gm/50mL 1 GM/50 ML BAG IVPB SCH ×2 (10:18→12:15)
[2020-06-25] MEDS: Lactulose Oral Soln 20 GM/30 ML UDC PO SCH ×2 (10:18→20:00)
[2020-06-25] MEDS: Levothyroxine Sodium 100 MCG VIAL IVP SCH (10:18)
[2020-06-25] MEDS ORDERED: Ipratropium/Albuterol Neb 3 ML IH PRN (13:47)
[2020-06-25 13:57] LABS: Triiodothyronine (T3) Free 1.17 pg/mL (2.50-3.90)
[2020-06-26 03:35] LABS: Hematocrit 23.3 % (37.5-50.1); Mean Corpuscular HGB Conc 34.3 g/dL (31.6-35.5); Mean Corpuscular Hemoglobin 39.4 pg (28.0-33.3); Mean Platelet Volume 11.7 fL (9.4-12.4); Platelet Count 144 K/mcL (140-400); Red Blood Count 2.03 M/mcL (4.19-5.50); Red Cell Distribution Width 16.1 % (11.5-14.5); White Blood Count 7.2 K/mcL (4.3-11.1)
[2020-06-26 03:36] LABS: Mean Corpuscular Volume 114.8 fL (83.0-100.0)
[2020-06-26 04:17] LABS: Calcium 7.8 mg/dL (8.6-10.3)
[2020-06-26] MEDS ORDERED: Aspirin Enteric Coated 81 MG Tablet PO SCH (09:00)
[2020-06-26] MEDS: cefTRIAXone 1,000 MG in Water for inj. (sterile) 10 ML IVP SCH (09:34)
[2020-06-26] MEDS: Levothyroxine Sodium 100 MCG VIAL IVP SCH (09:34)
[2020-06-26] MEDS: Lactulose Oral Soln 20 GM/30 ML UDC PO SCH (09:34)
[2020-06-26 15:07] VITALS: BP 104/63
== END 2020-06-26 18:35 | DRG 308 ==
LOC: 2ANU
PROVIDERS: ADMIT Student in an Organized Health Care Education/Training Program; ATTEND Student in an Organized Health Care Education/Training Program